=== PATIENT | male | born 1965 | race Caucasian/White ===

== ENCOUNTER 2017-03-23 00:59 | Emergency (ER) | payer BC, OTHER | END 2017-03-23 03:40 | disposition home or self-care (01) | LOC: ER 00:59 | DX: R07.9 Chest pain, unspecified (principal); I10 Essential (primary) hypertension; Z95.0 Presence of cardiac pacemaker; Z98.84 Bariatric surgery status; Z79.899 Other long term (current) drug therapy | CPT/HCPCS: 36415; 96374; 96375; 96376; J1885 ==

== ENCOUNTER 2017-03-24 23:25 | Emergency (ER) | payer BC, OTHER | END 2017-03-25 02:19 | disposition home or self-care (01) | LOC: ER 23:25 | DX: R07.9 Chest pain, unspecified (principal); I10 Essential (primary) hypertension; E87.6 Hypokalemia; F41.9 Anxiety disorder, unspecified; Z95.0 Presence of cardiac pacemaker; Z98.84 Bariatric surgery status; Z79.899 Other long term (current) drug therapy; Z79.82 Long term (current) use of aspirin | CPT/HCPCS: 36415; 96374; J2060 ==